=== PATIENT | male | born 1980 | race Caucasian/White ===

== ENCOUNTER 2017-12-04 12:10 | Inpatient (IN) | payer BC, OTHER ==
[2017-12-04] MEDS ORDERED: Morphine 4 MG/ML VIAL ONE ×4 (12:26→13:34)
--- NOTE | 2017-12-04 12:48 | RAD ---
FRONTAL VIEW CHEST: Date: 12/04/17 No prior comparison. CLINICAL HISTORY: Rhabdomyolysis. FINDINGS: There is no consolidation, effusion, or pneumothorax. Cardiac silhouette is normal in size. IMPRESSION: 1. No focal consolidation. 2. Incidental note of medial location of each humeral head relative to the respective scapular gleno id, with fragmentation about the partially imaged greater tuberosities. Recommend clinical correlatio n in this regard. Comparison with prior exams, as well as imaging follow-up as necessary, may also be obtained. POS: [facility]
[2017-12-04 12:52] LABS: #Lymphocytes 1.8 thou/uL (1.20-3.40); #Monocytes 1.4 thou/uL (0.11-0.59); #Neutrophils 16.3 thou/uL (1.40-6.50); %Basophils 0.1 % (0.0-1.0); %Eosinophils 0.1 % (0.0-10.0); %Lymphocytes 9.2 % (21.0-51.0); %Monocytes 6.9 % (0.0-10.0); %Neutrophils 83.6 % (42.0-75.0); Hemoglobin 11.1 g/dL (14.0-18.0); Mean Corpuscular HGB CONC 33.1 g/dL (32.0-36.0); Mean Corpuscular Hemoglobin 27.2 pg (27.0-31.0); Mean Platelet Volume 7.2 fL (7.4-10.4); Platelet Count 352 thou/uL (130-400); White Blood Cell (WBC) Count 19.5 thou/uL (4.8-10.8)
[2017-12-04 13:09] LABS: ALT (SGPT) 20 U/L (8-55); AST (SGOT) 19 U/L (5-34); Albumin 3.8 g/dL (3.5-5.0); Alkaline Phosphatase 95 U/L (40-150); Anion Gap 19 mmol/L (10-20); BUN (Urea Nitrogen) 17 mg/dL (8.9-20.6); Bilirubin, Total 0.6 mg/dL (0.2-1.2); CK (CPK) 332 U/L (30-200); Calc. Creatinine Clearance 0 mL/min (70-130); Carbon Dioxide 17 mmol/L (22-29); Chloride 103 mmol/L (98-107); Estimated GFR-MDRD Greater than 90; Globulin 2.2 g/dL (2.4-3.5); Glucose 151 mg/dL (70-105); Magnesium 2.1 mg/dL (1.6-2.6); Potassium 4.1 mmol/L (3.5-5.1); Sodium 135 mmol/L (136-145)
--- NOTE | 2017-12-04 13:09 | RAD ---
FRONTAL VIEW LEFT HUMERUS: Date: 12/04/17 INDICATION: Rhabdomyolysis, new onset arm pain, trauma. FINDINGS: There is medial dislocation of the humerus with a prominent fracture fragment involving the greater t uberosity. IMPRESSION: Fracture/dislocation of the left humerus. POS: [facility]
--- NOTE | 2017-12-04 13:10 | RAD ---
RIGHT HUMERUS SINGLE VIEW: Date: 12/04/17 INDICATION: Rhabdomyolysis, new onset arm pain, trauma. FINDINGS: There is medial location of the humeral head relative to the scaphoid glenoid with comminuted fractur e fragmentation and a dominant fracture fragment which involves the greater tuberosity. IMPRESSION: Fracture/dislocation of proximal right humerus. POS: [facility]
[2017-12-04 13:12] LABS: CKMB 1.2 ng/mL (0-6.6); Troponin I Less than 0.010 ng/mL (< 0.028)
[2017-12-04 13:18] LABS: Acetaminophen Less than 6.0 mcg/mL (10.0-30.0); Alcohol Less than 10 mg/dL (Less than 10); Salicylate Less than 8.0 mg/dL (15.0-30.0)
[2017-12-04] MEDS ORDERED: Ketorolac Tromethamine 30 MG/ML VIAL ONE (13:57)
[2017-12-04] MEDS ORDERED: Ondansetron HCl/PF 4 MG/2 ML Vial IV PRN (14:11)
[2017-12-04] MEDS ORDERED: traMADol HCl 50 MG TAB PO PRN (14:11)
[2017-12-04] MEDS ORDERED: TETANUS AND DIPHTHERIA TOX/PF 0.5 ML DISP.SYRIN IM SCH (14:15)
[2017-12-04] MEDS ORDERED: Communication Order-Pharmacy FS SCH (14:15)
[2017-12-04] MEDS ORDERED: Midazolam HCl 2 mg/2 ml Vial ONE (15:26)
--- NOTE | 2017-12-04 15:59 | RAD ---
RIGHT SHOULDER 2 VIEWS INTRAOPERATIVE FLUOROSCOPY: Date: 12/04/17 HISTORY: Fracture/dislocation right shoulder. FINDINGS: Intraoperative fluoroscopy is provided for closed reduction as performed by Dr. Dugan. Two spot f luoroscopic images show glenohumeral alignment to be within normal limits. Large ossific fragment of the greater tuberosity I mildly displaced. Fluoro Time: 0.8 seconds. POS: [facility]
[2017-12-04] MEDS ORDERED: Promethazine HCl 25 MG/ML VIAL SLOW IVP PRN (16:01)
[2017-12-04] MEDS ORDERED: Ondansetron HCl/PF 4 MG/2 ML Vial IVP PRN (16:01)
[2017-12-04] MEDS ORDERED: Promethazine HCl 25 MG/ML VIAL IM PRN (16:01)
[2017-12-04] MEDS ORDERED: HYDROmorphone 2 MG/ML VIAL SLOW IVP PRN (16:01)
--- NOTE | 2017-12-04 16:31 | RAD ---
LEFT SHOULDER INTRAOPERATIVE FLUOROSCOPY ONE VIEW: HISTORY: Fracture-dislocation. FINDINGS: Intraoperative fluoroscopy is provided for closed reduction of the left shoulder, as performed by Dr. Dugan. Glenohumeral alignment is maintained. Large fragmentation of the greater tuberosity is again demonstrated, with minimal displacement. POS: [facility]
[2017-12-04] MEDS ORDERED: PROPOFOL 200 MG/20 ML VIAL ONE (17:07)
[2017-12-04] MEDS ORDERED: Lidocaine 1% PF 5 ML VIAL ONE (17:07)
[2017-12-04] MEDS ORDERED: Succinylcholine Chloride 20 MG/ML 10 ml SYRINGE FS ONE (17:07)
[2017-12-04] MEDS: Ketorolac Tromethamine 30 MG/ML VIAL IVP SCH ×2 (17:17→23:46)
[2017-12-04] MEDS: Morphine 4 MG/ML VIAL SLOW IVP PRN ×2 (18:11→20:51)
[2017-12-04] MEDS: HYDROcodone/Acetaminophen 10/325 mg Tablet PO PRN ×2 (19:05→23:46)
[2017-12-04 19:07] VITALS: BMI 28.8
--- NOTE | 2017-12-04 19:07 | HP ---
DATE OF ADMISSION: 12/04/2017 CHIEF COMPLAINT: Bilateral shoulder pain. HISTORY OF PRESENT ILLNESS: Mr. Meredith is a 37-year-old male who reportedly awoke this morning at 1:00 a.m. He had severe shoulder pain and was unable to elevate his arms. He went to bed last nigh t without any incident. He denies sleep walking or any trauma. He denies that he fell. He laid in bed for several hours until this morning when he was able to find his phone. He was then able to mary l a friend and call for help. He was taken to the emergency department by EMS. He has been found to have bilateral shoulder dislocations and fractures of the greater tuberosity. He denies any history of seizure disorder. He does have a history of avascular necrosis of the hips. This has been treat ed with left total hip arthroplasty in [place]. He has a long history over several years of being on chronic pain medications. He is on narcotics administered by his primary care physician who was patricio woo in [place]. He is right hand dominant. PAST MEDICAL HISTORY: Bilateral hip avascular necrosis. He otherwise denies medical problems. PAST SURGICAL HISTORY: Left total hip arthroplasty and a history prior to that of core decompression of the left hip. SOCIAL HISTORY: The patient denies any tobacco, alcohol or drug use. His friend is at the bedside. He lives alone. There were no witnesses last night when he was in bed or when he awoke. PHYSICAL EXAMINATION: VITAL SIGNS: Stable. GENERAL: He is lying supine. HEENT: He does complain of significant shoulder pain. RESPIRATORY: Breathing comfortably. ABDOMEN: Soft, nontender, nondistended. MUSCULOSKELETAL: The patient's bilateral shoulders have large amount of swelling and ecchymosis. Th ere is pain with any motion. He is neurovascularly intact in the hands. He has intact Palpable radi al pulses. He reports feeling sensation to light touch in the hands. He is not able to move the vicky ulders. IMAGES: Chest x-ray as well as bilateral shoulder x-rays demonstrate anterior dislocated shoulders b ilaterally. The patient has bilateral fractures of the greater tuberosity with comminution as well. These appear acute. IMPRESSION: Bilateral shoulder fracture dislocations. PLAN: At this point, I am unsure how the patient was injured. He denies any trauma. He denies any history of seizure disorder. He denies being intoxicated and it is very unlikely that he injured him self in this manner simply sleeping. At any rate, he needs to have closed reduction of both shoulder s. We will do this in the operating room. He will need sedation. We will then reduce the shoulders . I will evaluate with intraoperative x-ray. He will likely need postoperative CT scan to evaluate the position of his greater tuberosities as well. If he has a good anatomic reduction, he can be marquez ated, then nonsurgically. If he has further displacement of the tuberosity fragments, he will need o pen reduction and internal fixation. This will be delayed, so I can discuss this with him further. He is aware of risk. He wants to proceed. He will receive further pain medication for pain control.
--- NOTE | 2017-12-04 20:04 | HP ---
DATE OF ADMISSION: 12/04/2017 ADMITTING PHYSICIAN: James Ying M.D. REQUESTING PHYSICIAN: Braxton Ramon M.D., Emergency Department. CONSULTING PHYSICIAN: Eulalio Dugan M.D., Orthopedics. HISTORY OF PRESENT ILLNESS: Mr. Meredith is a 37-year-old man who presents to [place] [facility] today with bilateral shoulder pain. He reports that he was in his usual state of health yesterd ay. He was doing some work on his computer until yesterday evening when he went to get a [employer] and then returned home. He denies any other activity. He went to bed around his usual time. Levi doyle was alone in the house at that time he reports. He awoke this morning with bilateral shoulder pain . He managed to get his phone and called his friend who came to his house and found him lying in the bed, unable to move bilateral shoulders. He was transported to [facility] wher e workup identified bilateral shoulder fracture and dislocations. Pain is exacerbated by movement. The pain is alleviated by nothing. He remained neurovascularly intact and hemodynamically stable. T rauma Services has been consulted for admission and management. Orthopedics has been consulted by [facility] ER physician. PAST MEDICAL HISTORY: Avascular necrosis, left hip. PAST SURGICAL HISTORY: 1. Left hip surgery. 2. Cholecystectomy. 3. Tonsillectomy. SOCIAL HISTORY: The patient lives alone. Works as an avionics engineer. Denies alcohol, drug or tobacco use . FAMILY HISTORY: Noncontributory. PAST PSYCHIATRIC HISTORY: No previous psychiatric history. CURRENT MEDICATIONS: 1. Cymbalta 60 mg once daily. 2. Cipro (for urinary tract infection for 28 days. The patient is unsure of what day he is on in pr escription cycle). 3. Tramadol, unsure dose. IMAGING DATA: EKG: Sinus tachycardia. Diagnostic imaging: Right humerus fracture dislocation, pro ximal right humerus. Left humerus, fracture dislocation left humerus. LABORATORY STUDIES: WBC 19.5, RBC 4.10, hemoglobin 11.1, hematocrit 33.6 and platelets 352. Advertising Copy Writer ry: Sodium 135, potassium 4.1, chloride 103, carbon dioxide 17, BUN 17, creatinine 0.88 and magnesiu m 2.1. Toxicology: Salicylate less than 8.0. Acetaminophen less than 6.0. Plasma alcohol less aline n 10. REVIEW OF SYSTEMS: CONSTITUTIONAL: The patient denies chills, fever, generalized malaise, weakness or recent weight los s. HEENT: Denies pain, sore throat, rhinorrhea, epistaxis or eye pain. CARDIOVASCULAR: Denies chest pain, syncope or palpitations. RESPIRATORY: Denies cough, wheezing or shortness of breath. GASTROINTESTINAL: Denies abdominal pain, nausea, vomiting, diarrhea or constipation. GENITOURINARY: Reports taking a 28-day course of Cipro for recent UTI. The patient is unsure how ma ny days he has been treated. Denies dysuria, hematuria or frequency. MUSCULOSKELETAL: Reports bilateral shoulder pain with bruising and swelling. SKIN: Denies rash or injury. NEUROLOGIC: Denies dizziness, headache, seizures or focal deficit. Back denies pain. PHYSICAL EXAMINATION: VITAL SIGNS: Blood pressure 145/102, pulse 101, respirations 20, O2 sat 100% on 2 liters. CONSTITUTIONAL: A well-developed, well-nourished male, obviously in pain with movement to bilateral arms, no acute distress. HEENT: Atraumatic and normocephalic. No posterior neck tenderness. Trachea midline. NECK: No JVD. PULMONARY/CHEST: Bilateral breath sounds clear. No respiratory distress. Chest movement symmetrica l. CARDIOVASCULAR: Sinus tachycardia. Heart sounds normal. ABDOMEN: Soft, nontender and nondistended. Pelvis stable. BACK: No tenderness to palpation. EXTREMITIES: Swelling and bruising to bilateral shoulders and upper arms. Cap refill brisk in all e xtremities. Neurovascular, intact. Pulses 2+. Bilateral lower extremities within normal limits. NEUROLOGIC: GCS 15. Awake, alert and oriented x3. SKIN: Warm and dry. No other signs of trauma noted. ASSESSMENT: 1. Bilateral shoulder fracture dislocation, unclear details or mechanism of injury. 2. Acute traumatic pain. PLAN: 1. Admit to the hospital with trauma services. 2. N.p.o., IV fluids, IV analgesia. 3. Consult to Dr. Dugan, Orthopedics, done by ER doctor. Dr. Dugan plans to take patient to the operating room today. 4. Physical and occupational therapy with orthopedic restrictions postoperatively. 5. Deep venous thrombosis prophylaxis when cleared with Orthopedic Surgery. 6. Pepcid for gastritis prophylaxis. This patient will be discussed with Dr. Ying, attending surgeon, at the end of this dictation.
--- NOTE | 2017-12-04 21:14 | OP ---
DATE OF OPERATION: 12/04/2017 OPERATION: Closed reduction of bilateral shoulder dislocations. PREOPERATIVE DIAGNOSES: Left shoulder fracture dislocation, right shoulder fracture dislocation. POSTOPERATIVE DIAGNOSES: Left shoulder fracture dislocation, right shoulder fracture dislocation. COMPLICATIONS: None. ESTIMATED BLOOD LOSS: None. SURGEON: Eulalio Dugan MD ANESTHESIA: General. INDICATIONS: Mr. Meredith is a 37-year-old male who reports that he awoke with bilateral shoulder d islocations. He is unsure how he injured his shoulders. He has been found to have fractures of the greater tuberosities bilaterally as well. He has been indicated for closed reduction of the shoulder s in the operating room under anesthesia. We have a plan to evaluate the shoulders with intraoperati ve x-ray and then determine if he needs open reduction internal fixation. He asked us to do this on a delayed basis, so that we can further discuss his shoulders. For now, we will do a closed reductio n and further treat as necessary later. DESCRIPTION OF PROCEDURE: Mr. Meredith was identified in the preoperative holding area. His extrem ities were marked. He was carried to the operating room. He was positioned supine. He was placed u nder general anesthetic. At this point, we used a traction countertraction technique. A sheath was placed around his trunk. We pulled traction on the right shoulder and felt a palpable clunk. This r educed the shoulder back into its anatomic position. We took x-ray images evaluating the right shoul juanita. There was significant displacement and comminution however of the greater tuberosity fragment. At this point, we moved to the left shoulder. We performed a similar countertraction and traction. We reduced the shoulder with a palpable clunk. Again, x-rays were obtained. Again, the shoulder vicky wed some displacement of the tuberosity fragment. We placed the patient in bilateral shoulder and ar m slings. He was then taken to the recovery room in good condition without complication.
[2017-12-05] MEDS: Morphine 4 MG/ML VIAL SLOW IVP PRN ×6 (01:25→20:13)
[2017-12-05] MEDS: Ketorolac Tromethamine 30 MG/ML VIAL IVP SCH ×3 (05:41→18:14)
--- NOTE | 2017-12-05 10:04 | PRG ---
DATE OF SERVICE: 12/05/2017 Please see Deb Schroeder' full H&P for details. Briefly, Mr. Meredith is admitted for injury to both upper arms and shoulder. He is set to go to the operating room for ORIF by Dr. Dugan today. No other obvious injuries. Plans per Ortho.
[2017-12-05] MEDS ORDERED: Fentanyl 100 MCG/2 ML VIAL ONE ×7 (10:37→14:56)
[2017-12-05] MEDS ORDERED: CEFAZOLIN/Water 2 GM/20 ML SYRINGE ONE (10:50)
[2017-12-05] MEDS ORDERED: Promethazine HCl 25 MG/ML VIAL IM PRN (13:58)
[2017-12-05] MEDS ORDERED: HYDROmorphone 2 MG/ML VIAL SLOW IVP PRN (13:58)
[2017-12-05] MEDS ORDERED: Ondansetron HCl/PF 4 MG/2 ML Vial IVP PRN (13:58)
[2017-12-05] MEDS ORDERED: Promethazine HCl 25 MG/ML VIAL SLOW IVP PRN (13:58)
[2017-12-05] MEDS ORDERED: Meperidine HCl/PF 25 MG/ML VIAL SLOW IVP PRN (13:58)
[2017-12-05] MEDS ORDERED: Ketorolac Tromethamine 30 MG/ML VIAL IVP PRN (13:58)
[2017-12-05] MEDS ORDERED: Ondansetron HCl/PF 4 MG/2 ML Vial ONE ×2 (14:24→16:22)
--- NOTE | 2017-12-05 14:36 | OP ---
DATE OF PROCEDURE: 12/05/2017 OPERATIONS: 1. Open reduction and internal fixation of left proximal humerus fracture. 2. Open reduction and internal fixation of right proximal humerus fracture. PREOPERATIVE DIAGNOSIS: Bilateral shoulder fracture dislocations with greater tuberosity fracture an d displacement. POSTOPERATIVE DIAGNOSIS: Bilateral shoulder fracture dislocations with greater tuberosity fracture a nd displacement. COMPLICATIONS: None. ESTIMATED BLOOD LOSS: 250 mL. SURGEON: Eulalio Dugan M.D. FARM IMPLEMENT ENGINE MECHANIC: Han Mims PA-C. IMPLANTS: Two Synthes proximal humeral locking plates were utilized. INDICATIONS: Mr. Meredith is a 37-year-old male who reports that he awoke with severe shoulder pain . He was found to have bilateral shoulder fracture dislocations. He had closed reduction and now melton s been indicated for open reduction and internal fixation to restore anatomic alignment of his tubero sities. He is aware of risks and benefits and wants to proceed. DESCRIPTION OF PROCEDURE: Mr. Meredith was identified in the preoperative holding area. His correc t extremities were marked. He was carried to the operating room. He was positioned supine. General anesthesia was induced. A multidisciplinary timeout was performed. The patient's left upper extrem ity was prepped and draped in sterile fashion. We began the procedure with lateral deltoid split approach to the proximal humerus. We dissected crow n through the subcutaneous tissues to the deltoid fascia which was incised. We then split the deltoi d exposing subacromial space, rotator cuff and tuberosity fracture. We took care to not injure the a xillary nerve by traveling distally. At this point, we cleared the bony edges of the tuberosity. We then reduced the fracture back into its anatomic position and held this with K-wire fixation. At th is point, we applied our Synthes lateral humeral plate. We placed a screw distally locking the plate to the bone followed by multiple locking screws proximally and final distal fixation. We took x-ray images confirming this. There was no complication noted. The fracture was well reduced and the anjel te was placed appropriately. We thoroughly irrigated with copious lavage. We then closed with 0 Wilmer ryl suture, 2-0 Vicryl suture and sherly for the skin. At this point, we moved to the right shoulder. The right arm was prepped and draped appropriately. We then dissected down through the subcutaneous tissues to the deltoid fascia which was split. Again , we exposed the underlying greater tuberosity comminuted fracture. The bony edges were cleared and hematoma was evacuated. We then reduced the fracture back into its anatomic position. We placed mul tiple locking screws proximally and nonlocking screws distally. We fixed the plate to the bone appro priately. We had good alignment. There were no complications. We thoroughly irrigated with copious lavage. At this point, we closed with 0 Vicryl suture, 2-0 Vicryl suture and sherly for the skin. A sterile dressing was applied to both shoulders. We placed the patient in slings. He was awoken a nd taken to the recovery room in good position.
[2017-12-05] MEDS ORDERED: Meperidine HCl/PF 25 MG/ML VIAL ONE (14:39)
[2017-12-05] MEDS ORDERED: Promethazine HCl 25 MG/ML VIAL ONE (14:56)
[2017-12-05] MEDS ORDERED: HYDROmorphone 0.5 MG/0.5 ML SYRINGE ONE ×2 (15:15→15:25)
[2017-12-05] MEDS ORDERED: Glycopyrrolate 0.2 MG/ML 5 ML SYRINGE ONE (16:22)
[2017-12-05] MEDS ORDERED: Lidocaine 1% PF 5 ML VIAL ONE (16:22)
[2017-12-05] MEDS ORDERED: PROPOFOL 200 MG/20 ML VIAL ONE (16:22)
[2017-12-05] MEDS ORDERED: PHENYLEPHRINE-NS 100 MCG/ML 10 ML SYRINGE ONE (16:22)
[2017-12-05] MEDS: HYDROcodone/Acetaminophen 10/325 mg Tablet PO PRN ×2 (16:42→21:12)
--- NOTE | 2017-12-05 19:47 | PRG ---
DATE OF SERVICE: 12/05/2017 ATTENDING PHYSICIAN: James Ying M.D. SUBJECTIVE: Mr. Meredith is a 37-year-old man who was admitted 1 day ago with bilateral shoulder fr acture dislocation. He is unsure of mechanism of injury as he woke up with shoulder pain and does no t recall any details of incident or injury. He has been stable in the surgical floor. He was taken to the operating room yesterday for closed reduction of bilateral shoulder dislocations. He was retu rned to the OR today for bilateral ORIF of proximal humerus fractures. He is now seen postoperativel y on surgical floor. OBJECTIVE: VITAL SIGNS: Temperature 98.4, pulse 111, respirations 16, O2 sat 97% on room air and blood pressure 142/82. GENERAL: A well-nourished, well-developed male in no acute distress, resting in bed. HEENT: Atraumatic and normocephalic. PULMONARY: Bilateral breath sounds clear. No respiratory distress. CARDIOVASCULAR: Regular rate and rhythm. Heart sounds normal. ABDOMEN: Soft, nontender and nondistended. EXTREMITIES: Cap refill brisk in all extremities. Pulses 2+ in all extremities, bilateral upper arm s and sling. NEUROLOGIC: GCS of 15. Awake, alert and oriented x3. ASSESSMENT: 1. Status post bilateral shoulder fracture dislocation. 2. Postoperative day #1, status post closed reduction, bilateral shoulder dislocations. 3. Postoperative day #0, status post open reduction and internal fixation, bilateral shoulder fractu re. 4. Acute traumatic pain, well controlled. PLAN: 1. Begin working with physical and occupational therapy with orthopedic restrictions. 2. Antibiotics per Orthopedic Service. 3. Begin transitioned to oral pain medicine. 4. Regular diet. The patient was seen and examined with Dr. Ying, who agrees with the plan.
[2017-12-05] MEDS: CEFAZOLIN/Water 2 GM/20 ML SYRINGE SLOW IVP SCH (20:48)
--- NOTE | 2017-12-06 01:10 | PRG ---
DATE OF SERVICE: 12/05/2017 SUBJECTIVE: The patient is hospital day 2 status post as he reports awakening with severe bilateral shoulder pain. He was brought to the emergency department and was found to have bilateral shoulder f racture dislocations. On the day of admission, he underwent closed reduction of both shoulders under general anesthesia and today he underwent open reduction and internal fixation of his greater tubero sity fractures. By report, the patient tolerated these procedures well and his pain is being control led. The patient has had difficulty taking p.o. due to his inability of his upper extremities requir ing someone to assist him. OBJECTIVE: VITAL SIGNS: Temperature is 98.7, heart rate 115, blood pressure 135/67, respirations 16, oxygen sat uration 96% on room air. Per nursing report, the patient had his vitals taken and was in a fair amount of pain which explains his tachycardia, otherwise the patient has been doing well. At time of my examination, the patient w as sleeping and I did not disturb him, but by nursing report, he tolerated his orthopedic procedure w ell and they were working on his pain control. ASSESSMENT AND PLAN: 1. Status post bilateral shoulder fracture dislocations. 2. Status post closed reductions of bilateral shoulder dislocation under general anesthesia. 3. Status post open reduction and internal fixation, bilateral greater tuberosity fractures, left hu merus. Plan will be to continue supportive care. Start physical, occupational therapy and start discussion of placement.
[2017-12-06] MEDS: HYDROcodone/Acetaminophen 10/325 mg Tablet PO PRN ×2 (02:18→06:38)
[2017-12-06] MEDS: Morphine 4 MG/ML VIAL SLOW IVP PRN ×3 (02:18→09:15)
[2017-12-06 04:10] LABS: Hemoglobin 6.7 g/dL (14.0-18.0); Mean Corpuscular HGB CONC 33.4 g/dL (32.0-36.0); Mean Corpuscular Hemoglobin 27.8 pg (27.0-31.0); Mean Corpuscular Volume 83.3 fl (80.0-94.0); Mean Platelet Volume 6.8 fL (7.4-10.4); Platelet Count 223 thou/uL (130-400); RBC Distribution Width 15.1 % (11.5-14.5); Red Blood Cell (RBC) Count 2.42 mill/uL (4.70-6.10); White Blood Cell (WBC) Count 12.5 thou/uL (4.8-10.8)
[2017-12-06 04:11] LABS: Anion Gap 7 mmol/L (10-20); BUN (Urea Nitrogen) 16 mg/dL (8.9-20.6); Calc. Creatinine Clearance 159 mL/min (70-130); Calcium 7.9 mg/dL (7.8-10.44); Carbon Dioxide 27 mmol/L (22-29); Chloride 104 mmol/L (98-107); Estimated GFR-MDRD Greater than 90; Glucose 130 mg/dL (70-105); Potassium 4.2 mmol/L (3.5-5.1); Sodium 134 mmol/L (136-145)
[2017-12-06] MEDS: CEFAZOLIN/Water 2 GM/20 ML SYRINGE SLOW IVP SCH (04:59)
[2017-12-06 07:46] LABS: Hemoglobin 7.1 g/dL (14.0-18.0); Mean Corpuscular HGB CONC 33.3 g/dL (32.0-36.0); Mean Corpuscular Hemoglobin 28.8 pg (27.0-31.0); Mean Corpuscular Volume 86.4 fl (80.0-94.0); Mean Platelet Volume 7.1 fL (7.4-10.4); Platelet Count 237 thou/uL (130-400); RBC Distribution Width 14.9 % (11.5-14.5); Red Blood Cell (RBC) Count 2.46 mill/uL (4.70-6.10); White Blood Cell (WBC) Count 9.8 thou/uL (4.8-10.8)
[2017-12-06] MEDS ORDERED: ISOVUE-370 76%-LOCM 1 ML ONE (08:04)
[2017-12-06 08:17] LABS: Band 2 % (5-11); Hypochromia SLIGHT = 6-15 cells (100X) (0-5/hpf); Lymphocytes 20 % (21-51); MDiff Complete? YES; Monocytes 6 % (0-10); Neutrophil 72 % (42-75); Ovalocytes SLIGHT = 2-5 cells (100X) (0-1/hpf); PLT Morphology Comment Appears Adequate; Polychromasia SLIGHT = 2-3 cells (100X) (0-2/hpf)
[2017-12-06] MEDS ORDERED: hydrALAZINE 20 MG/ML VIAL SLOW IVP PRN (09:16)
[2017-12-06] MEDS ORDERED: Ondansetron ODT 4 MG TAB PO PRN (09:16)
[2017-12-06] MEDS ORDERED: Chloraseptic Spray 180 ml Bottle PO PRN (09:16)
[2017-12-06] MEDS ORDERED: HYDROcodone/Acetaminophen 5/325 mg Tablet PO PRN (09:16)
[2017-12-06] MEDS ORDERED: Senokot 8.6 MG TAB PO PRN (09:16)
[2017-12-06] MEDS ORDERED: Sodium Chloride 0.65% Nasal 44 ML BOT EA NARE PRN (09:16)
[2017-12-06] MEDS ORDERED: Loratadine 10 MG TAB PO PRN (09:16)
[2017-12-06] MEDS ORDERED: Milk Of Magnesia 30 ML UDCUP PO PRN (09:16)
[2017-12-06] MEDS ORDERED: Lorazepam 2 MG/ML VIAL SLOW IVP PRN (09:16)
[2017-12-06] MEDS ORDERED: Zolpidem Tartrate 5 MG TAB PO PRN ×2 (09:16→09:49)
[2017-12-06] MEDS ORDERED: Diabetic Tussin 200 MG/10 ML UDCUP PO PRN (09:16)
[2017-12-06] MEDS ORDERED: Acetaminophen 325 MG TAB PO PRN (09:16)
[2017-12-06] MEDS ORDERED: Eucerin (Mineral Oil/Petrolatum,White) 30 gm Jar TOP PRN (09:16)
--- NOTE | 2017-12-06 09:36 | CT ---
CT OF THE CHEST WITH CONTRAST CT ABDOMEN AND PELVIS WITH CONTRAST: HISTORY: Rapid drop in hemoglobin. The patient has bilateral shoulder fractures status post repair. TECHNIQUE: 1. Multiple contiguous axial images were obtained in a CT of the chest with contrast. Coronal refor mats were performed. 2. Multiple contiguous axial images were obtained in a CT of the abdomen and pelvis with contrast. Coronal reformats were performed. FINDINGS: The heart is normal in size without focal cardiac abnormality. No hilar or mediastinal lymphadenopat hy are seen. No focal infiltrates are seen in the lungs. No suspicious pulmonary mass is identified. No pneumoth orax or pleural effusion are seen. Hardware is seen in both shoulders. Soft tissue swelling is seen surrounding both shoulders. There are mild degenerative changes in the thoracic spine. There is a stable small sclerotic lesion in th e T9 vertebral body which may represent a bone island. CT ABDOMEN/PELVIS: The patient is status post cholecystectomy. The patient has also had prior gastric surgery. The muriel e, right kidneys, adrenal glands, spleen, and pancreas are unremarkable. No free air, free fluid, or stranding changes are seen n the abdomen or pelvis. Hardware is seen in the left hip. Mild degenerative changes are seen in the lumbar spine. The abdom inal wall soft tissues are unremarkable. IMPRESSION: 1. No evidence of acute intrathoracic abnormality. 2. No evidence of acute intraabdominal/pelvic abnormality. POS: [facility]
[2017-12-06] MEDS ORDERED: diphenhydrAMINE 25 MG CAP PO PRN (09:49)
[2017-12-06] MEDS ORDERED: diphenhydrAMINE 50 MG/ML VIAL IM/IV PRN (09:49)
[2017-12-06] MEDS ORDERED: Promethazine HCl 25 MG/ML VIAL IM PRN (09:49)
[2017-12-06] MEDS ORDERED: Ondansetron HCl/PF 4 MG/2 ML Vial IVP PRN (09:49)
[2017-12-06] MEDS ORDERED: Fentanyl 100 MCG/2 ML VIAL SLOW IVP SCH (10:00)
[2017-12-06 10:13] LABS: Lactic Acid 1.2 mmol/L (0.5-2.2)
[2017-12-06] MEDS: HYDROmorphone 10 mg/100 ml CADD IV PRN (11:33)
[2017-12-06] MEDS: Ketorolac Tromethamine 30 MG/ML VIAL IVP SCH ×2 (12:31→17:07)
--- NOTE | 2017-12-06 12:42 | PDOC.PN ---
- Subjective Encounter Start Date: 12/06/17 Encounter Start Time: 12:30 -: old records requested/rev Patient seen and examined. No new complaints. No overnight events - Objective Resuscitation Status: Resuscitation Status FULL:Full Resuscitation MAR Reviewed: Yes Vital Signs & Weight: Vital Signs (12 hours) Temp Pulse Resp BP Pulse Ox 12/06/17 11:30 98.9 F 105 H 16 125/69 98 12/06/17 08:32 99.3 F 96 16 12/06/17 08:00 99.3 F 96 16 149/89 H 96 12/06/17 04:00 98.2 F 102 H 18 139/76 97 I&O: 12/05/17 12/06/17 12/07/17 06:59 06:59 06:59 Intake Total 1250 1250 4 Balance 1250 1250 4 Result Diagrams: 12/06/17 07:23 12/06/17 03:47 Radiology Reviewed by me: Yes (BILATERAL SHOULDER FRACTURE DISLOCATION) EKG Reviewed by me: Yes (SINUS TACHYCARDIA) Phys Exam - Physical Examination Constitutional: NAD HEENT: PERRLA, moist MMs, sclera anicteric Neck: no JVD, supple Respiratory: no wheezing, no rales, no rhonchi Cardiovascular: RRR, no significant murmur, no rub Gastrointestinal: soft, non-tender, no distention, positive bowel sounds Musculoskeletal: no edema, pulses present bilateral shoulde surgical site with dressing Neurological: non-focal, normal sensation Psychiatric: normal affect, A&O x 3 Skin: no rash, normal turgor Dx/Plan (1) Shoulder dislocation Status: Acute Comment: S/P Closed reduction of bilateral shoulder fracture dislocation (2) Anemia due to acute blood loss Code(s): D62 - ACUTE POSTHEMORRHAGIC ANEMIA Status: Acute - Plan cont current plan of care, PT/OT, social science teacher * will check lactic acid, magnesium , TSH, prolactin as a part of secondary evidence of seizure * get EEG * if unremarkable, then no further testing or treatment at this point * rehab evaluation * add ferrous sulfate on discharge * medication reviewed as below * symptomatic treatment * pain control with RV TECHNICIAN * transfuse as needed Review of Systems - Review of Systems Constitutional: negative: fever, chills, sweats, weakness, malaise, other Eyes: negative: Pain, Vision Change, Conjunctivae Inflammation, Eyelid Inflammation, Redness, Other ENT: negative: Ear Pain, Ear Discharge, Nose Pain, Nose Discharge, Nose Congestion, Mouth Pain, Mouth Swelling, Throat Pain, Throat Swelling, Other Respiratory: negative: Cough, Dry, Shortness of Breath, Hemoptysis, SOB with Excertion, Pleuritic Pain, Sputum, Wheezing Cardiovascular: negative: chest pain, palpitations, orthopnea, paroxysmal nocturnal dyspnea, edema, light headedness, other Gastrointestinal: negative: Nausea, Vomiting, Abdominal Pain, Diarrhea, Constipation, Melena, Hematochezia, Other Genitourinary: negative: Dysuria, Frequency, Incontinence, Hematuria, Retention , Other Musculoskeletal: Shoulder Pain. negative: Neck Pain, Arm Pain, Back Pain, Hand Pain, Leg Pain, Foot Pain, Other Skin: negative: Rash, Lesions, Kiet, Bruising, Other Neurological: negative: Weakness, Numbness, Incoordination, Change in Speech, Confusion, Seizures, Other - Medications/Allergies Allergies/Adverse Reactions: Allergies Allergy/AdvReac Type Severity Reaction Status Date / Time No Known Allergies Allergy Verified 12/04/17 19:58 Medications: Current Medications Acetaminophen (Tylenol) 650 mg PO Q4H PRN PRN Reason: Headache/Fever or Mild Pain Al Hydroxide/Mg Hydroxide (Maalox) 15 ml PO Q4H PRN PRN Reason: Heartburn or Indigestion Artificial Tears (Tears Naturale) 0 drop EA EYE PRN PRN PRN Reason: Dry Eyes Diphenhydramine HCl (Benadryl) 25 mg IM/IV Q3H PRN PRN Reason: Itching Diphenhydramine HCl (Benadryl) 25 mg PO Q3H PRN PRN Reason: Itching Famotidine (Pepcid) 20 mg PO BID [facility] Guaifenesin (Robitussin Sf) 200 mg PO Q4H PRN PRN Reason: Cough Hydralazine HCl (Apresoline) 10 mg SLOW IVP Q4H PRN PRN Reason: Systolic BP > 180 Hydromorphone HCl (Dilaudid Cadd) 0 mg IV INF PRN PRN Reason: Pain Last Admin: 12/06/17 11:33 Dose: 10 mg Ketorolac Tromethamine (Toradol) 30 mg IVP Q6HR [facility] Stop: 12/08/17 06:01 Last Admin: 12/06/17 12:31 Dose: 30 mg Loratadine (Claritin) 10 mg PO DAILYPRN PRN PRN Reason: Sinus Symptoms Magnesium Hydroxide (Milk Of Magnesium) 30 ml PO DAILYPRN PRN PRN Reason: Constipation Mineral Oil/White Petrolatum (Eucerin Cream) 0 gm TOP BIDPRN PRN PRN Reason: Dry Skin Ondansetron HCl (Zofran Odt) 4 mg PO Q6H PRN PRN Reason: Nausea/Vomiting Ondansetron HCl (Zofran) 4 mg IVP Q6H PRN PRN Reason: Nausea/Vomiting Phenol (Chloraseptic [place] 180 Ml Bot) 0 ml PO PRN PRN PRN Reason: Sore Throat Promethazine HCl (Phenergan) 12.5 mg IM Q4H PRN PRN Reason: Nausea/Vomiting Senna (Senokot) 2 tab PO HSPRN PRN PRN Reason: Constipation Sodium Chloride (Flush - Normal Saline) 10 ml IVF PRN PRN PRN Reason: Saline Flush Sodium Chloride ([place] Nasal [place] 0.65%) 0 ml EA NARE QIDPRN PRN PRN Reason: Nasal Congestion Zolpidem Tartrate (Ambien) 5 mg PO HSPRN PRN PRN Reason: Insomnia History of Present Illnes - History of Present Illness Reason for Visit: admitted from ER by trauma team for bilateral shoulder fracture dislocation History of Present Illness: pt had surgery with closed reduction of bilateral shoulder fracture dislocation medical team consulted for suspected seizure evaluation, as there was no reason for bilateral shoulder fracture dislocation - Past Surgical History Past Surgical History: None - Past Family History Family History: None - Past Social History Smoke: No Alcohol: None Drugs: None Domestic Violence: Negative
--- NOTE | 2017-12-06 12:57 | PRG ---
DATE OF SERVICE: 12/06/2017 ATTENDING PHYSICIAN: Dr. Ying. SUBJECTIVE: Mr. Meredith is a 37-year-old man who was admitted 2 days ago with bilateral shoulder f ractures and dislocations. He is unclear as to the mechanism of injury, stating that he woke up with shoulder pain and does not recall any details of the injury. He has been stable on the surgical elinor or. He is now postop day #2 status post closed reduction of his bilateral shoulder dislocations. He is postop day #1 status post ORIF of his proximal humerus fractures. Patient's hemoglobin dropped f rom 11.1 on 12/04/2017 to 6.7 this morning. His lab was repeated showing hemoglobin of 7.1 most rece ntly. The patient is somewhat pale but reports that he has no symptoms such as dizziness or lighthea dedness. He vocalizes no complaints this morning. OBJECTIVE: VITAL SIGNS: BP 149/89, pulse 96, temperature 99.3, respirations 16, O2 sat 96% on room air. GENERAL APPEARANCE: Well-nourished and well-developed young adult male lying in bed. He is somewhat pale. He is in no acute distress. HEENT: Normocephalic and atraumatic. RESPIRATORY: Breath sounds clear to auscultation bilaterally with normal effort. CARDIOVASCULAR: Regular rate and rhythm. Normal S1 and S2. No murmurs, gallops or rubs. ABDOMEN: Soft, nontender, and nondistended. He has normal bowel sounds. EXTREMITIES: The patient is moving all extremities. He is neurovascularly intact x4. NEUROLOGIC: The patient's GCS is 15 this morning. He has no focal deficits. LABORATORY DATA: Hematology: WBC is 12.5, hemoglobin 6.7, hematocrit 20.2, platelets 223. Repeat h ematology: WBC 9.8, hemoglobin 7.1, hematocrit 21.3, platelets 237. Chemistry: Sodium 134, potassi um 4.2, chloride 104, bicarbonate 27, BUN 16, creatinine 0.79, glucose 130, calcium 7.9, lactic acid 1.2, magnesium 1.6, TSH 0.9549. IMAGING: CT chest, abdomen, and pelvis with contrast. 1. No evidence of acute intrathoracic abnormality. 2. No evidence of acute intraabdominal/pelvic abnormality. ASSESSMENT: 1. Bilateral shoulder fractures/dislocation. 2. Postop day #2, status post closed reduction of shoulder dislocation. 3. Postop day #1 status post open reduction and internal fixation of proximal humerus fractures. 4. Acute traumatic pain. 5. Acute blood loss anemia. PLAN: 1. Continue working with PT and OT. Rehab screen placed today. 2. CT chest, abdomen, and pelvis with contrast for acute blood loss anemia and to rule out intraabdo yeison or intrathoracic source of bleeding. 3. Type and cross. We will transfuse for hemoglobin and hematocrit less than 7.0. Repeat CBC this afternoon. 4. Continue regular diet. 5. Continue oral analgesia as ordered. This patient was seen and examined along with Dr. Ying who agrees with the assessment and plan.
[2017-12-06 14:26] LABS: Hemoglobin 6.4 g/dL (14.0-18.0)
[2017-12-06] MEDS: Mag-Al 1200 mg/1200 mg/30 ML UDCUP PO PRN (17:07)
[2017-12-06] MEDS: Famotidine 20 MG TAB PO SCH (21:34)
[2017-12-06] MEDS: Artificial Tears 18 DROP/0.9 ML EA EYE PRN (21:34)
[2017-12-07] MEDS: Ketorolac Tromethamine 30 MG/ML VIAL IVP SCH ×4 (01:00→16:50)
[2017-12-07 05:53] LABS: #Eosinphils 0.2 thou/uL (0.0-0.7); #Lymphocytes 1.8 thou/uL (1.20-3.40); #Monocytes 0.5 thou/uL (0.11-0.59); #Neutrophils 4.6 thou/uL (1.40-6.50); %Basophils 0.3 % (0.0-1.0); %Eosinophils 3.5 % (0.0-10.0); %Lymphocytes 25.5 % (21.0-51.0); %Monocytes 7.2 % (0.0-10.0); %Neutrophils 63.6 % (42.0-75.0); Hemoglobin 7.1 g/dL (14.0-18.0); Mean Corpuscular HGB CONC 33.9 g/dL (32.0-36.0); Mean Corpuscular Hemoglobin 28.7 pg (27.0-31.0); Mean Corpuscular Volume 84.6 fl (80.0-94.0); Mean Platelet Volume 6.9 fL (7.4-10.4); Platelet Count 194 thou/uL (130-400); RBC Distribution Width 14.3 % (11.5-14.5); Red Blood Cell (RBC) Count 2.46 mill/uL (4.70-6.10); White Blood Cell (WBC) Count 7.2 thou/uL (4.8-10.8)
[2017-12-07 06:13] LABS: Anion Gap 6 mmol/L (10-20); BUN (Urea Nitrogen) 8 mg/dL (8.9-20.6); Calc. Creatinine Clearance 203 mL/min (70-130); Calcium 8.1 mg/dL (7.8-10.44); Carbon Dioxide 29 mmol/L (22-29); Chloride 104 mmol/L (98-107); Estimated GFR-MDRD Greater than 90; Glucose 98 mg/dL (70-105); Magnesium 1.8 mg/dL (1.6-2.6); Phosphorus 2.8 mg/dL (2.3-4.7); Potassium 4.1 mmol/L (3.5-5.1); Sodium 135 mmol/L (136-145)
--- NOTE | 2017-12-07 08:58 | PDOC.PN ---
- Subjective Encounter Start Date: 12/07/17 Encounter Start Time: 07:20 Patient seen and examined. No new complaints. No overnight events pain controlled - Objective Resuscitation Status: Resuscitation Status FULL:Full Resuscitation MAR Reviewed: Yes Vital Signs & Weight: Vital Signs (12 hours) Temp Pulse Resp BP Pulse Ox 12/07/17 03:40 98.7 F 91 16 149/84 H 97 12/06/17 23:12 98.5 F 98 16 147/77 H 96 I&O: 12/06/17 12/07/17 12/08/17 06:59 06:59 06:59 Intake Total 1250 1275 840 Balance 1250 1275 840 Result Diagrams: 12/07/17 05:21 12/07/17 05:21 Phys Exam - Physical Examination Constitutional: NAD HEENT: PERRLA, moist MMs, sclera anicteric Neck: no JVD, supple Respiratory: no wheezing, no rales, no rhonchi Cardiovascular: RRR, no significant murmur, no rub Gastrointestinal: soft, non-tender, no distention, positive bowel sounds Musculoskeletal: no edema, pulses present bilateral shoulder with surgical site dressing Neurological: non-focal, normal sensation Lymphatic: no nodes Psychiatric: normal affect, A&O x 3 Skin: no rash, normal turgor Dx/Plan (1) Shoulder dislocation Status: Acute Comment: S/P Closed reduction of bilateral shoulder fracture dislocation (2) Anemia due to acute blood loss Code(s): D62 - ACUTE POSTHEMORRHAGIC ANEMIA Status: Acute Comment: s/p 1 unit PRBC transfusion - Plan cont current plan of care, psych social worker * medication reviewed as below * symptomatic treatment * pain control * discharge per primary team when OK with them * does not have any clinical history s/o any seizure, EEG result pending, does not need any new medication for seizure if EEG normal, if abnormal, then he will need neurology follow up. * continue ferrous sulfate on discharge * stable for discharge medically * will sign off. Review of Systems - Review of Systems Eyes: negative: Pain, Vision Change, Conjunctivae Inflammation, Eyelid Inflammation, Redness, Other ENT: negative: Ear Pain, Ear Discharge, Nose Pain, Nose Discharge, Nose Congestion, Mouth Pain, Mouth Swelling, Throat Pain, Throat Swelling, Other Respiratory: negative: Cough, Dry, Shortness of Breath, Hemoptysis, SOB with Excertion, Pleuritic Pain, Sputum, Wheezing Cardiovascular: negative: chest pain, palpitations, orthopnea, paroxysmal nocturnal dyspnea, edema, light headedness, other Gastrointestinal: negative: Nausea, Vomiting, Abdominal Pain, Diarrhea, Constipation, Melena, Hematochezia, Other Genitourinary: negative: Dysuria, Frequency, Incontinence, Hematuria, Retention , Other Musculoskeletal: Shoulder Pain. negative: Neck Pain, Arm Pain, Back Pain, Hand Pain, Leg Pain, Foot Pain, Other Skin: negative: Rash, Lesions, Kiet, Bruising, Other Neurological: negative: Weakness, Numbness, Incoordination, Change in Speech, Confusion, Seizures, Other - Medications/Allergies Allergies/Adverse Reactions: Allergies Allergy/AdvReac Type Severity Reaction Status Date / Time No Known Allergies Allergy Verified 12/04/17 19:58 Medications: Current Medications Acetaminophen (Tylenol) 650 mg PO Q4H PRN PRN Reason: Headache/Fever or Mild Pain Last Admin: 12/06/17 19:12 Dose: 650 mg Al Hydroxide/Mg Hydroxide (Maalox) 15 ml PO Q4H PRN PRN Reason: Heartburn or Indigestion Last Admin: 12/06/17 17:07 Dose: 15 ml Artificial Tears (Tears Naturale) 0 drop EA EYE PRN PRN PRN Reason: Dry Eyes Last Admin: 12/06/17 21:34 Dose: 20 drop Diphenhydramine HCl (Benadryl) 25 mg IM/IV Q3H PRN PRN Reason: Itching Diphenhydramine HCl (Benadryl) 25 mg PO Q3H PRN PRN Reason: Itching Last Admin: 12/06/17 21:34 Dose: 25 mg Famotidine (Pepcid) 20 mg PO BID [facility] Last Admin: 12/06/17 21:34 Dose: 20 mg Guaifenesin (Robitussin Sf) 200 mg PO Q4H PRN PRN Reason: Cough Hydralazine HCl (Apresoline) 10 mg SLOW IVP Q4H PRN PRN Reason: Systolic BP > 180 Hydromorphone HCl (Dilaudid Cadd) 0 mg IV INF PRN PRN Reason: Pain Last Admin: 12/06/17 11:33 Dose: 10 mg Ketorolac Tromethamine (Toradol) 30 mg IVP Q6HR [facility] Stop: 12/08/17 06:01 Last Admin: 12/07/17 06:41 Dose: 30 mg Loratadine (Claritin) 10 mg PO DAILYPRN PRN PRN Reason: Sinus Symptoms Magnesium Hydroxide (Milk Of Magnesium) 30 ml PO DAILYPRN PRN PRN Reason: Constipation Mineral Oil/White Petrolatum (Eucerin Cream) 0 gm TOP BIDPRN PRN PRN Reason: Dry Skin Ondansetron HCl (Zofran Odt) 4 mg PO Q6H PRN PRN Reason: Nausea/Vomiting Ondansetron HCl (Zofran) 4 mg IVP Q6H PRN PRN Reason: Nausea/Vomiting Phenol (Chloraseptic [place] 180 Ml Bot) 0 ml PO PRN PRN PRN Reason: Sore Throat Promethazine HCl (Phenergan) 12.5 mg IM Q4H PRN PRN Reason: Nausea/Vomiting Senna (Senokot) 2 tab PO HSPRN PRN PRN Reason: Constipation Sodium Chloride (Flush - Normal Saline) 10 ml IVF PRN PRN PRN Reason: Saline Flush Sodium Chloride ([place] Nasal [place] 0.65%) 0 ml EA NARE QIDPRN PRN PRN Reason: Nasal Congestion Zolpidem Tartrate (Ambien) 5 mg PO HSPRN PRN PRN Reason: Insomnia
[2017-12-07] MEDS: Famotidine 20 MG TAB PO SCH ×2 (09:13→21:08)
[2017-12-07] MEDS ORDERED: Ferrous Sulfate 325 MG TAB PO SCH (09:30)
[2017-12-07] MEDS ORDERED: Polyethylene Glycol 3350 17 GM Packet PO SCH (09:30)
[2017-12-07] MEDS ORDERED: Ascorbic Acid 500 mg Chewable Tablet PO SCH (09:30)
[2017-12-07] MEDS: Cyclobenzaprine 10 MG TAB PO PRN (09:34)
--- NOTE | 2017-12-07 10:04 | DIS ---
TRANSFER OF CARE NOTE DATE OF ADMISSION: 12/04/2017 DATE OF CONSULTATION: 12/06/2017 DATE OF DISCHARGE: Pending. PRIMARY DISCHARGE DIAGNOSES: 1. Bilateral shoulder dislocation and fracture, status post closed reduction. 2. Anemia due to acute blood loss, status post 1 unit transfusion. SECONDARY DISCHARGE DIAGNOSIS: None. PRIMARY PROCEDURES/OPERATIONS: Dr. Eulalio Dugan did a closed reduction of bilateral shoulde r fracture/dislocation. RADIOLOGICAL INVESTIGATION: Bilateral shoulder x-ray, humeral x-ray, chest x-rays, CT chest, abdomen and pelvis. SIGNIFICANT LABS: Hemoglobin 7.1, creatinine 0.62. Prolactin normal. TSH normal. Magnesium normal . Electrolytes normal. LFTs normal. Serum drug screen negative. DISCHARGE MEDICATIONS: Pain medication will be given by primary care physician. The patient will co ntinue all his previous medications including Cymbalta 60 mg p.o. daily, Suboxone one film sublingual daily p.r.n., ferrous sulfate 325 mg p.o. daily. CONTRAINDICATIONS: None. CODE STATUS: FULL CODE. INPATIENT CONSULTANTS: Trauma Team was primary while in hospital. Dr. Dugan did his surgery. S ound Team was consulted for medical evaluation. TEST RESULTS PENDING ON DISCHARGE: EEG. DISCHARGE PLAN: Based on primary team. HOSPITAL COURSE: A 37-year-old male who was admitted for bilateral shoulder dislocation and fracture that happened during night time, etiology was uncertain. Primary team suspected it might be a seizu re and that is why the medical team was consulted. The patient's history is not consistent with any seizure type of activity, but we did an EEG, the official report is pending. Secondary evidence of E EG including prolactin, CK, WBC count is also unremarkable. At this point, while in hospital the pat ient never had any seizure type of activity. If EEG is normal, then he does not need any further emanuel luation or treatment, but if EEG is abnormal, then patient will need neurology followup. The patient is medically stable at this point. We will defer discharge process to primary team and w e will sign off. Please see my progress note from today for further details.
[2017-12-07] MEDS: Acetaminophen 1,000 MG in Premix Bag 1 BAG IVPB SCH ×2 (12:59→16:50)
[2017-12-07] MEDS: HYDROmorphone 10 mg/100 ml CADD IV PRN (13:43)
[2017-12-07 14:03] LABS: Hemoglobin 7.1 g/dL (14.0-18.0); Platelet Count 211 thou/uL (130-400)
--- NOTE | 2017-12-07 14:08 | PRG ---
DATE OF SERVICE: 12/07/2017 ATTENDING PHYSICIAN: Dr. Ying. SUBJECTIVE: Mr. Meredith is a 37-year-old man, who was admitted 3 days ago with bilateral shoulder fractures and dislocations with unclear etiology. He is now postop day #3 status post closed reducti on of his bilateral shoulder dislocations. He is postop day #2 status post ORIF of his proximal lito emmanuel fractures. The patient's hemoglobin has been low since the 8th of this month. He received a uni t of packed red blood cells yesterday and his hemoglobin improved from 6.4-7.1 this morning. The pat ient continues to report no symptoms such as dizziness or lightheadedness even with mobilization. Th is morning, he localizes no complaints. OBJECTIVE: VITAL SIGNS: BP 157/81, pulse 94, temperature 98.7, respirations 16, O2 sat 98% on room air. GENERAL APPEARANCE: Patient is a well-nourished, well-developed young adult male, in no acute distre ss. He does appear somewhat pale. HEENT: Normocephalic and atraumatic. RESPIRATORY: Breath sounds are clear to auscultation bilaterally with normal effort. CARDIOVASCULAR: Regular rate and rhythm. No murmurs, gallops, or rubs. ABDOMEN: Soft, nontender, and nondistended. He has positive bowel sounds. EXTREMITIES: The patient is neurovascularly intact x4. He has dressings over his shoulders bilatera lly, which appear clean and dry. He does have some amount of swelling from his neck to his shoulders over the area of the trapezius muscles bilaterally. There is faint yellowish discoloration as well. His compartments feel soft in his upper extremities bilaterally. Radial pulses are 2+ bilaterally. NEUROLOGIC: The patient's GCS is 15 this morning. He is alert and oriented x3. He has no focal def icits. LABORATORY DATA: Hematology: WBC 7.2, hemoglobin 7.1, hematocrit 20.8, platelets 194. Chemistry: Sodium 135, potassium 4.1, chloride 104, bicarbonate 29, BUN 8, creatinine 0.62, glucose 98, calcium 8.1, phosphorus 2.8, magnesium 1.8. IMAGING: There are no images to review today. ASSESSMENT: 1. Bilateral shoulder fractures/dislocation. 2. Postoperative day #3, status post closed reduction of shoulder dislocations. 3. Postoperative day #2, status post open reduction and internal fixation of proximal humerus fractu res. 4. Acute traumatic pain. 5. Acute blood loss anemia. PLAN: 1. Continue working with PT and OT. 2. We will continue to transfuse for H and H less than 721. A repeat H and H scheduled for this aft hanna. 3. EEG ordered per Medicine Service. Results pending. We will need a neuro followup depending on t he results of this. 4. Continue regular diet. 5. Continue to optimize pain control and encourage incentive spirometry and pulmonary toilet. This patient was seen along with Dr. Ying, who agrees with the assessment and plan.
--- NOTE | 2017-12-07 14:54 | EEG ---
Referring Physician: Enedina PEREIRA EEG # [id number] TEST TYPE: ROUTINE PORTABLE INPATIENT REPORT: AN EEG USING THE INTERNATIONAL TEN-TWENTY SYSTEM OF ELECTRODE PLACEMENT WAS PERFORMED. The best waking background is a 9-10 hertz alpha rhythm. No sleep was seen. There were periods of abundant movement artifact and EMG artifact. Hyperventilation and photic stimulation were unremarkable. No epileptiform features were noted. IMPRESSION: THIS IS A NORMAL AWAKE EEG. Report Analyst: [employer]: [email or web address]
[2017-12-07] MEDS: Mag-Al 1200 mg/1200 mg/30 ML UDCUP PO PRN (16:50)
[2017-12-07] MEDS: Artificial Tears 18 DROP/0.9 ML EA EYE PRN (16:51)
[2017-12-08] MEDS: Acetaminophen 1,000 MG in Premix Bag 1 BAG IVPB SCH ×2 (00:14→05:17)
[2017-12-08] MEDS: Ketorolac Tromethamine 30 MG/ML VIAL IVP SCH ×2 (00:14→05:18)
[2017-12-08] MEDS: HYDROmorphone 10 mg/100 ml CADD IV PRN (00:55)
[2017-12-08] MEDS: Ascorbic Acid 500 mg Chewable Tablet PO SCH (07:54)
[2017-12-08] MEDS: Polyethylene Glycol 3350 17 GM Packet PO SCH (07:54)
[2017-12-08] MEDS: Famotidine 20 MG TAB PO SCH ×2 (07:54→21:17)
[2017-12-08] MEDS: Ferrous Sulfate 325 MG TAB PO SCH (07:54)
[2017-12-08] MEDS: Bisacodyl 10 MG SUPP PR SCH (07:54)
[2017-12-08 08:30] LABS: Anion Gap 8 mmol/L (10-20); BUN (Urea Nitrogen) 6 mg/dL (8.9-20.6); Calc. Creatinine Clearance 213 mL/min (70-130); Calcium 8.4 mg/dL (7.8-10.44); Carbon Dioxide 28 mmol/L (22-29); Chloride 104 mmol/L (98-107); Estimated GFR-MDRD Greater than 90; Glucose 93 mg/dL (70-105); Magnesium 1.8 mg/dL (1.6-2.6); Phosphorus 3.3 mg/dL (2.3-4.7); Sodium 136 mmol/L (136-145)
[2017-12-08 08:33] LABS: #Basophils 0.1 thou/uL (0.0-0.2); #Eosinphils 0.4 thou/uL (0.0-0.7); #Lymphocytes 1.6 thou/uL (1.20-3.40); #Monocytes 0.6 thou/uL (0.11-0.59); %Basophils 1.8 % (0.0-1.0); %Eosinophils 5.6 % (0.0-10.0); %Lymphocytes 23.6 % (21.0-51.0); %Monocytes 8.4 % (0.0-10.0); %Neutrophils 60.6 % (42.0-75.0); Hemoglobin 7.2 g/dL (14.0-18.0); Mean Corpuscular HGB CONC 32.3 g/dL (32.0-36.0); Mean Corpuscular Hemoglobin 28.3 pg (27.0-31.0); Mean Corpuscular Volume 87.6 fl (80.0-94.0); Mean Platelet Volume 7.3 fL (7.4-10.4); Platelet Count 250 thou/uL (130-400); RBC Distribution Width 14.8 % (11.5-14.5); Red Blood Cell (RBC) Count 2.55 mill/uL (4.70-6.10); White Blood Cell (WBC) Count 6.6 thou/uL (4.8-10.8)
[2017-12-08] MEDS ORDERED: Acetaminophen 325 MG TAB PO SCH ×2 (09:00→18:00)
[2017-12-08] MEDS: Gabapentin 300 MG CAP PO SCH ×3 (10:22→21:17)
[2017-12-08] MEDS: Tamsulosin HCl 0.4 MG CAP PO SCH (10:22)
[2017-12-08] MEDS: DULoxetine 60 MG CAP PO SCH (10:22)
[2017-12-08] MEDS: cloNIDine 0.2 MG TAB PO SCH ×3 (10:24→21:17)
[2017-12-08] MEDS ORDERED: Ketorolac Tromethamine 30 MG/ML VIAL IVP PRN (10:48)
[2017-12-08] MEDS: traMADol HCl 50 MG TAB PO SCH ×3 (12:05→23:19)
[2017-12-08] MEDS: Acetaminophen 500 MG TAB PO SCH ×3 (12:05→23:19)
[2017-12-08] MEDS ORDERED: Acetaminophen 500 MG TAB PO SCH (13:00)
--- NOTE | 2017-12-08 15:52 | PRG ---
DATE OF SERVICE: 12/08/2017 SUBJECTIVE: Mr. Meredith is awake and alert today. 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 He is po stoperative day #4, status post apparent fall from a bed, sustaining bilateral shoulder fractures. Levi doyle is tolerating a general diet, having normal bowel and urinary function. He is participating well w [facility] physical and occupational therapy. OBJECTIVE: VITAL SIGNS: This morning includes blood pressure 135/80, pulse is 98, respiratory rate is 16, tempe rature 98.9 degrees Fahrenheit, oxygen saturation 95% on room air. HEENT EXAMINATION: Reveals normocephalic and atraumatic. Pupils are equal, round, reactive to light and accommodation. HEART: Reveals regular rate and rhythm. No murmurs or gallops auscultated. CHEST: Clear to auscultation bilaterally. His breathing is regular and unlabored. ABDOMEN: Soft, nontender, nondistended. Bowel sounds in all 4 quadrants appear normoactive. EXTREMITIES: Reveal 2+ radial and pedal pulses bilaterally. No ankle edema is present. NEUROLOGICAL EXAMINATION: Reveals no focal deficits present. LABORATORY FINDINGS: Today includes a CBC with 6600 white blood cells, hemoglobin and hematocrit 7.2 and 22.4 respectively. Platelet count is stable at 250,000. Metabolic profile: Sodium 136, potass ium is 4.0, chloride is 104, bicarbonate is 28, BUN is 6, creatinine 0.59, glucose is 93, magnesium 1 .8, phosphorus is 3.3. IMPRESSION: 1. Postadmission day #4, status post alleged fall from the bed. 2. Bilateral shoulder fractures, patient is hemodynamically stable. 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 We will optimize his pain management using judicious dosages of opioids. We will augment this with gabapentin and nonsteroidal anti-inflammatory agents. Above findings and plan discussed with the patient, who indicates understanding of the information gi chaim. He concurs with the plan.
[2017-12-08] MEDS ORDERED: Acetaminophen 325 MG TAB PO PRN (18:00)
[2017-12-08] MEDS ORDERED: Enoxaparin Sodium 40 MG/0.4 ML SYRINGE SC SCH (21:00)
[2017-12-08] MEDS ORDERED: Zolpidem Tartrate 5 MG TAB PO PRN (21:14)
[2017-12-08] MEDS: Cyclobenzaprine 10 MG TAB PO PRN (21:17)
[2017-12-09] MEDS: cloNIDine 0.2 MG TAB PO SCH ×2 (03:50→16:59)
[2017-12-09] MEDS: Acetaminophen 500 MG TAB PO SCH ×2 (06:21→17:00)
[2017-12-09] MEDS: traMADol HCl 50 MG TAB PO SCH ×3 (06:21→17:05)
[2017-12-09] MEDS ORDERED: Ascorbic Acid 500 mg Chewable Tablet PO SCH ×2 (08:00→09:00)
[2017-12-09] MEDS ORDERED: Ferrous Sulfate 325 MG TAB PO SCH ×2 (08:00→17:00)
[2017-12-09 08:05] LABS: #Eosinphils 0.3 thou/uL (0.0-0.7); #Lymphocytes 1.7 thou/uL (1.20-3.40); #Monocytes 0.5 thou/uL (0.11-0.59); #Neutrophils 2.8 thou/uL (1.40-6.50); %Basophils 0.3 % (0.0-1.0); %Eosinophils 5.5 % (0.0-10.0); %Monocytes 8.5 % (0.0-10.0); %Neutrophils 52.7 % (42.0-75.0); Hemoglobin 6.6 g/dL (14.0-18.0); Mean Corpuscular HGB CONC 32.7 g/dL (32.0-36.0); Mean Corpuscular Hemoglobin 28.9 pg (27.0-31.0); Mean Corpuscular Volume 88.3 fl (80.0-94.0); Mean Platelet Volume 7.3 fL (7.4-10.4); Platelet Count 271 thou/uL (130-400); RBC Distribution Width 15.2 % (11.5-14.5); Red Blood Cell (RBC) Count 2.28 mill/uL (4.70-6.10); White Blood Cell (WBC) Count 5.2 thou/uL (4.8-10.8)
[2017-12-09] MEDS: Ferrous Sulfate 325 MG TAB PO SCH (08:06)
[2017-12-09] MEDS: Tamsulosin HCl 0.4 MG CAP PO SCH (08:06)
[2017-12-09] MEDS: Ascorbic Acid 500 mg Chewable Tablet PO SCH (08:06)
[2017-12-09] MEDS: DULoxetine 60 MG CAP PO SCH (08:06)
[2017-12-09] MEDS: Famotidine 20 MG TAB PO SCH (08:07)
[2017-12-09] MEDS: Gabapentin 300 MG CAP PO SCH ×2 (08:07→17:06)
[2017-12-09] MEDS: Bisacodyl 10 MG SUPP PR SCH (08:07)
[2017-12-09] MEDS: Polyethylene Glycol 3350 17 GM Packet PO SCH (08:08)
[2017-12-09 08:21] LABS: Anion Gap 7 mmol/L (10-20); BUN (Urea Nitrogen) 12 mg/dL (8.9-20.6); Calc. Creatinine Clearance 188 mL/min (70-130); Calcium 8.6 mg/dL (7.8-10.44); Carbon Dioxide 30 mmol/L (22-29); Chloride 104 mmol/L (98-107); Estimated GFR-MDRD Greater than 90; Glucose 92 mg/dL (70-105); Phosphorus 3.8 mg/dL (2.3-4.7); Potassium 4.1 mmol/L (3.5-5.1); Sodium 137 mmol/L (136-145)
[2017-12-09] MEDS: HYDROcodone/Acetaminophen 10/325 mg Tablet PO PRN ×3 (08:56→17:06)
[2017-12-09 10:21] LABS: Reticulocyte Count 3.7 % (0.5-1.5)
[2017-12-09] MEDS ORDERED: Epoetin (ESRD) 20,000 UNITS/ML SC SCH (10:45)
--- NOTE | 2017-12-09 12:16 | PRG ---
DATE OF SERVICE: 12/09/2017 SUBJECTIVE: Mr. Meredith is a 37-year-old man who is postoperative day #4 status post open reductio n internal fixation of bilateral proximal humerus fractures. He reports adequate pain control. He m oves all extremities and answers questions appropriately. OBJECTIVE: VITAL SIGNS: Today includes blood pressure 129/79, pulse is 84, respiratory rate is 14, temperature is 98.3 degrees Fahrenheit, oxygen saturation is 100% on room air. HEENT: Reveals normocephalic and atraumatic. Pupils are equal, round, and reactive to light and acc ommodation. Extraocular muscles are intact bilaterally. No scleral icterus present. HEART: Reveals regular rate and rhythm. No murmurs or gallops auscultated. CHEST: Clear to auscultation bilaterally. Breathing regular and unlabored. ABDOMEN: Soft, nontender, nondistended. EXTREMITIES: With 2+ radial and pedal pulses bilaterally. No ankle edema is present. NEUROLOGIC: Reveals no focal deficits present. LABORATORY DATA: Today includes a CBC with 5200 white blood cells, hemoglobin and hematocrit 6.6 and 20.1 respectively, platelet count is 271,000. Metabolic profile: Sodium 137, potassium is 4.1, chl oride is 104, bicarbonate is 30, BUN 12, creatinine 0.67, glucose is 92, magnesium 2.0, phosphorus is 3.8. ASSESSMENT AND PLAN: 1. Postoperative day 4, status post open reduction internal fixation of bilateral proximal humerus f ractures. 2. Acute blood loss anemia. PLAN: The patient was transfused with packed red blood cells today. We will continue with iron repl acement therapy and vitamin C supplementation. The patient is otherwise hemodynamically stable.
[2017-12-09 16:40] VITALS: TEMP 98.2
[2017-12-09 17:01] VITALS: BP 125/67
--- NOTE | 2017-12-09 23:48 | DIS ---
DATE OF ADMISSION: 12/04/2017 DATE OF DISCHARGE: 12/09/2017 ADMISSION DIAGNOSES: 1. Bilateral shoulder fracture dislocation with unclear mechanism of injury. 2. Acute traumatic pain. DISCHARGE DIAGNOSES: 1. Bilateral shoulder fracture dislocation with unclear mechanism of injury. 2. Acute traumatic pain. 3. History of opiate substance abuse. 4. 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 5. Acute blood loss anemia. CONSULTANTS: Dr. Dugan, Orthopedic Surgery, [facility]. PROCEDURES: On 12/04/2017, closed reduction and bilateral shoulder dislocations with Dr. Dugan. On 12/05/2017, bilateral open reduction and internal fixation of proximal humerus fractures with Dr. Dugan. HOSPITAL COURSE: Morgan Meredith is a 37-year-old male who presented to [facility] with a bradley f complaint of bilateral shoulder pain after reportedly upon awakening with no clear mechanism of inj ury. He was evaluated in the emergency room and found to have bilateral fracture dislocations of his shoulder joints. He was admitted by Trauma Services with Orthopedic Surgery for consultation. He u nderwent closed reduction of his bilateral shoulder dislocations on the date of admission. The , he underwent open reduction and internal fixation of bilateral humeral fractures. Postoper atively, the patient did well and pain was eventually controlled with p.o. analgesics. He was evalua yenifer by [facility] medicine for his unclear mechanism of injury. He had an EEG, which was negative. He was evaluated by inpatient rehabilitation for disposition and physical therapy. During his hospital ization, he was found to be anemic requiring multiple blood transfusions. He was hemodynamically and medically stable for discharge and was accepted to inpatient rehabilitation on 12/09/2017. DISCHARGE DISPOSITION: Inpatient rehabilitation. DISCHARGE CONDITION: Good. PHYSICAL EXAMINATION: As documented in daily progress note dated 12/09/2017. DISCHARGE INSTRUCTIONS: Discharge instructions were provided to the patient and the accepting facili ty who vocalized understanding. He is to be nonweightbearing bilateral upper extremities. He is to have no overhead activity and limited range of motion for activities of daily living. The patient sh ould have a CBC the morning after admission to inpatient rehabilitation and his hemoglobin and hemato crit should be trended appropriately. This information was provided to inpatient rehabilitation prio r to discharge. DISCHARGE MEDICATIONS: As documented in the discharge paperwork in the electronic medical record. FOLLOWUP APPOINTMENTS: The patient should follow up with Dr. Dugan from Orthopedic Surgery in ap proximately 2 weeks. He should follow up with his primary care provider after being discharged from inpatient rehabilitation to ensure resolution of his acute blood loss anemia. The patient does not n eed to follow up with Dr. Huertas formally, but may call our office with any questions. This is merely a summary of the patient's hospitalization for more in depth information, please see his medical rec ord in its entirety.
== END 2017-12-09 18:34 | DRG 493 ==
LOC: ERS 12:10 → SDC 14:17 → SURG A 14:23 → OBSVTOIN 17:06 → SURG A 17:06
PROVIDERS: ADMIT Surgery; ATTEND Orthopaedic Surgery
PROC: 0PSDXZZ Reposition Left Humeral Head, External Approach (ICD-10-PCS; 2017-12-04)
PROC: 0PSCXZZ Reposition Right Humeral Head, External Approach (ICD-10-PCS; 2017-12-04)
PROC: 0PSC04Z Reposition Right Humeral Head with Internal Fixation Device, Open Approach (ICD-10-PCS; principal; 2017-12-05)
PROC: 0PSD04Z Reposition Left Humeral Head with Internal Fixation Device, Open Approach (ICD-10-PCS; 2017-12-05)
PROC: 30233N1 Transfusion of Nonautologous Red Blood Cells into Peripheral Vein, Percutaneous Approach (ICD-10-PCS; 2017-12-06)
DX: S42.251A Displaced fracture of greater tuberosity of right humerus, initial encounter for closed fracture (principal); D62 Acute posthemorrhagic anemia; S42.252A Displaced fracture of greater tuberosity of left humerus, initial encounter for closed fracture; M87.9 Osteonecrosis, unspecified; F11.11 Opioid abuse, in remission
CPT/HCPCS: 36415; 36430; 71045; 71260; 74177; 76000; 80048; 80053; 80307; 82553; 83605; 83735; 84100; 84146; 84443; 84484; 85025; 85027; 85046; 86850; 86900; 86901; 93005; 94760; 95816; 95819; 96361; 96374; 96375; 96376; C1713; G0390; G8978-GP-CK; G8979-GP-CJ; G8987-GO-CL; G8988-GO-CJ; J0131; J1170; J1650; J1885; J2001; J2175; J2250; J2270; J2405; J2550; J2704; J3010; P9016; Q4081

== ENCOUNTER 2020-08-20 04:29 | Emergency (ER) | payer OTHER ==
[2020-08-20 05:57] LABS: #Lymphocytes 1.4 thou/uL (1.20-3.40); #Monocytes 0.4 thou/uL (0.11-0.59); #Neutrophils 6.1 thou/uL (1.40-6.50); %Basophils 0.5 % (0.0-1.0); %Eosinophils 0.3 % (0.0-10.0); %Lymphocytes 17.8 % (21.0-51.0); %Monocytes 5.5 % (0.0-10.0); %Neutrophils 75.8 % (42.0-75.0); Hemoglobin 9.8 g/dL (14.0-18.0); Mean Corpuscular HGB CONC 31.8 g/dL (32.0-36.0); Mean Corpuscular Hemoglobin 25.1 pg (27.0-31.0); Mean Corpuscular Volume 78.9 fL (78.0-98.0); Mean Platelet Volume 7.6 fL (7.4-10.4); Platelet Count 325 thou/uL (130-400); Red Blood Cell (RBC) Count 3.92 mill/uL (4.70-6.10)
[2020-08-20 06:34] LABS: ALT (SGPT) 25 U/L (8-55); AST (SGOT) 17 U/L (5-34); Albumin 3.8 g/dL (3.5-5.0); Alkaline Phosphatase 116 U/L (40-110); Anion Gap 13 mmol/L (10-20); BUN (Urea Nitrogen) 8 mg/dL (8.9-20.6); Bilirubin, Total 0.2 mg/dL (0.2-1.2); Calc. Creatinine Clearance 0 mL/min (70-130); Calcium 8.3 mg/dL (7.8-10.44); Carbon Dioxide 24 mmol/L (22-29); Chloride 103 mmol/L (98-107); Globulin 2.9 g/dL (2.4-3.5); Glucose 89 mg/dL (70-105); Potassium 4.3 mmol/L (3.5-5.1); Protein, Total 6.7 g/dL (6.0-8.3); Sodium 136 mmol/L (136-145)
--- NOTE | 2020-08-20 08:01 | CT ---
CT OF THE BRAIN WITHOUT CONTRAST: Date: 08/20/2020 INDICATION: History of seizures and altered mental status. COMPARISON: None. FINDINGS: No acute infarct, hemorrhage, or hydrocephalus is present. Septum pellucidum and third ventricle are midline. Mastoid air cells and paranasal sinuses are clear. Skull intact. IMPRESSION: No acute intracranial abnormality demonstrated. POS: [facility]
== END 2020-08-20 06:55 | disposition home or self-care (01) ==
LOC: ERS 04:29
DX: R56.9 Unspecified convulsions (principal)
CPT/HCPCS: 36415; 70450; 80053; 84146; 85025

== ENCOUNTER 2022-04-07 17:39 | Emergency (ER) | payer OTHER ==
[2022-04-07 18:06] LABS: #Eosinphils 0.1 thou/uL (0.0-0.7); #Lymphocytes 2.6 thou/uL (1.20-3.40); #Monocytes 0.3 thou/uL (0.11-0.59); #Neutrophils 4.7 thou/uL (1.40-6.50); %Basophils 0.1 % (0.0-1.0); %Eosinophils 1.2 % (0.0-10.0); %Lymphocytes 33.5 % (21.0-51.0); %Monocytes 3.4 % (0.0-10.0); %Neutrophils 61.8 % (42.0-75.0); Hemoglobin 8.5 g/dL (14.0-18.0); Mean Corpuscular HGB CONC 30.2 g/dL (32.0-36.0); Mean Corpuscular Volume 86.1 fL (78.0-98.0); Mean Platelet Volume 7.7 fL (7.4-10.4); Platelet Count 582 thou/uL (130-400); RBC Distribution Width 18.4 % (11.5-14.5); Red Blood Cell (RBC) Count 3.26 mill/uL (4.70-6.10); White Blood Cell (WBC) Count 7.6 thou/uL (4.8-10.8)
[2022-04-07] MEDS ORDERED: Morphine 4 MG/ML VIAL ONE (18:31)
[2022-04-07 18:35] LABS: ALT (SGPT) 8 U/L (8-55); AST (SGOT) 12 U/L (5-34); Albumin 2.6 g/dL (3.5-5.0); Alkaline Phosphatase 111 U/L (40-110); Anion Gap 20 mmol/L (10-20); BUN (Urea Nitrogen) 11 mg/dL (8.9-20.6); Bilirubin, Total Less than 0.2 mg/dL (0.2-1.2); Calc. Creatinine Clearance 0 mL/min (70-130); Calcium 9.3 mg/dL (7.8-10.44); Carbon Dioxide 17 mmol/L (22-29); Chloride 106 mmol/L (98-107); Estimated GFR 115; Globulin 5.3 g/dL (2.4-3.5); Glucose 68 mg/dL (70-105); Potassium 3.4 mmol/L (3.5-5.1); Protein, Total 7.9 g/dL (6.0-8.3); Sodium 140 mmol/L (136-145)
== END 2022-04-07 20:18 | disposition home or self-care (01) ==
LOC: ERS 17:39
DX: S01.112A Laceration without foreign body of left eyelid and periocular area, initial encounter (principal); D64.9 Anemia, unspecified; G89.29 Other chronic pain; M25.551 Pain in right hip; W19.XXXA Unspecified fall, initial encounter
CPT/HCPCS: 12011; 36415; 70450; 80053; 85025; 96374; J2270